=== PATIENT | male | born 1985 | race Hispanic/Latino ===

== ENCOUNTER 2019-03-01 06:57 | Outpatient (CLI) | payer BC ==
--- NOTE | 2019-03-01 08:30 | ULT ---
RIGHT LOWER EXTREMITY VENOUS DUPLEX ULTRASOUND INCLUDING COLOR AND SPECTRAL DOPPLER IMAGING: Date: 03/01/19 HISTORY: Right leg pain. Pain in right calf. TECHNIQUE: Exam performed from groin to ankle including visualized greater saphenous, common femoral, superficia l femoral, profunda femoral, popliteal, trifurcation, and posterior tibial vein regions. FINDINGS: Phasic flow noted at all levels with normal compressibility and normal augmentation. IMPRESSION: No evidence for deep venous thrombosis. POS: OFF
== END 2019-03-01 06:58 | disposition home or self-care (01) ==
LOC: BICULT 06:57
PROVIDERS: ATTEND Family Medicine
DX: M79.661 Pain in right lower leg (principal)